=== PATIENT | male | born 1950 | race Caucasian/White ===

== ENCOUNTER → 2022-02-05 | Outpatient (CLI) | payer MEDICARE, OTHER ==
[~2022-02-05] MED LIST: CEPH500C PO; MTF500T PO
--- NOTE | 2022-02-05 20:07 | Diagnostic Imaging Report ---
PROCEDURE: MR imaging of the brain without contrast. TECHNIQUE: Multiplanar, multisequence MR imaging of the brain was performed without contrast. INDICATION: Acute onset left weakness approximately 1 week ago. FINDINGS: Ventricles and sulci are within normal limits for size. There are scattered areas of mild T2 prolongation in the periventricular white matter of the cerebral hemispheres. In addition, there is an elongated region of increased T2 signal along the lateral margin of right thalamus extending into the basal ganglia which also demonstrates restricted diffusion. There is no abnormal mass effect or shift of midline structures. There is no MRI evidence of acute hemorrhage. The visualized paranasal sinuses demonstrate mild mural thickening particularly in the left maxillary sinus. 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 Dictated by: Dictated on workstation # [id number]
== END ==
LOC: RAD 16:44
PROVIDERS: ATTEND Nurse Practitioner Family
DX: G81.94 Hemiplegia, unspecified affecting left nondominant side (principal)
CPT/HCPCS: 70551

== ENCOUNTER 2022-02-11 13:59 | Outpatient (CLI) | payer MEDICARE, OTHER | END 2022-02-23 | LOC: CANPRECLI → RAD 02-23 08:53 | PROVIDERS: ATTEND Family Medicine | DX: Z53.9 Procedure and treatment not carried out, unspecified reason (principal) ==

== ENCOUNTER → 2022-02-23 | Outpatient (CLI) | payer MEDICARE, OTHER | LOC: CARD 09:30 | PROVIDERS: ATTEND Internal Medicine Cardiovascular Disease | DX: I11.9 Hypertensive heart disease without heart failure (principal); I25.10 Atherosclerotic heart disease of native coronary artery without angina pectoris | CPT/HCPCS: 93306 ==

== ENCOUNTER → 2022-07-20 | Outpatient (CLI) | payer MEDICARE, OTHER ==
[~2022-07-20] VITALS: Ht 193 cm; Wt 100.0 kg
[~2022-07-20] MED LIST changes: +CATHETER FLUSH 10 ML SYR IVP PRN
[2022-07-20 09:33] VITALS: BP 142/84
--- NOTE | 2022-07-20 11:37 | Cardiology Stress Test Report ---
Stress Test Report Date of Procedure/Referring: Date of Procedure: Jul 20, 2022 PCP Agusto Bryson MD Admitting Physician Admitting Physician: Attending Physician: Brittany Mae MD Baseline Heart Rate: 62 Baseline Blood Pressure: Blood Pressure Systolic: 142 Blood Pressure Diastolic: 84 Vital Signs Date Time Temp Pulse Resp B/P (MAP) Pulse Ox O2 Delivery O2 Flow Rate FiO2 07/20/22 09:33 74 142/84 (103) Baseline Vital Signs Vital Signs Date Time Temp Pulse Resp B/P (MAP) Pulse Ox O2 Delivery O2 Flow Rate FiO2 07/20/22 09:33 74 142/84 (103) Baseline EKG: Baseline EKG: NSR Summary: After explaining the procedure and details to the patient, he signed the consent and was brought to the stress nuclear laboratory. Patient exercised on standard Ashish protocol, EKG, heart rate and blood pressure were monitored continuously, resting and stress doses of radio tracer were injected, imaging was acquired and reviewed in the short axis, horizontal long a xis and vertical long axis views Patient was able to exercise for a total of 3 minutes on Ashish protocol, METs 4.6 Maximum heart rate 130 Maximum blood pressure 235/99 Stress EKG, Minimal nondiagnostic changes Recovery EKG, Return to baseline TID: 1.22 SSS: 1 SDS: 1 EF: 56 Conclusion: Poor exercise tolerance for 3 minutes on standard Ashish protocol 4.6 METS achieving 92% of maximum expected heart rate Appropriate heart rate response to exercise with hypertensive response to exercise with peak blood pressure 235/99 return to baseline during recovery Abnormal EKG with exercise with [address] depression in lead II, III, aVF, V4 and V6 return to baseline during recovery Transient ischemic dilatation 1.22 Normal left ventricular size with ejection fraction 56% SPECT images did not show any regional ischemia Copy Copies To 1: AGUSTO BRYSON MD, BASHAR J MD Jul 20, 2022 11:37
== END ==
LOC: CARD 08:30
PROVIDERS: ATTEND Internal Medicine Cardiovascular Disease
DX: I10 Essential (primary) hypertension (principal); I25.10 Atherosclerotic heart disease of native coronary artery without angina pectoris
CPT/HCPCS: 78452; 93017; A9502

== ENCOUNTER 2022-07-29 11:00 | Day surgery (SDC) | payer MEDICARE, OTHER ==
[~2022-07-29] VITALS: Ht 193 cm; Wt 100.6 kg
[2022-07-29] VITALS (24 sets, daily range): BP systolic 111–164; BP diastolic 71–99
[~2022-07-29 11:00] MED LIST changes: +ASPIRIN 325 MG (5 GR) TABLET ONE; -CATHETER FLUSH 10 ML SYR IVP PRN; +CLOPIDOGREL 300 MG (PLAVIX) TABLET PO ONE; +HEParin (CATH LAB) 2,000 ML IV ONE; +HEParin 1000 UNIT/ML (10ML VIAL) FOR BOLUS ONE; +LIDOCAINE 1% INJ 20 ML VIAL ONE; +MIDAZOLAM 5 MG/5 ML (VERSED) VIAL ONE; +NITRO DRIP 25000 MCG/D5W 250 ML IV ONE; +NS IV 1000 ML 1,000 ML ONE; +VERAPAMIL 5 MG/2 ML (CALAN) VIAL IV ONE; +fentaNYL INJ 100 MCG/2 ML AMP ONE
[2022-07-29] MEDS ORDERED: NS IV 1000 ML 1,000 ML IV SCH (11:15)
--- NOTE | 2022-07-29 11:17 | Cardiac Cath Report ---
Cardiac Cath Report Physician (s)/C[employer]ol Mainframe Developer (s) Physician MARK WATTERS MD Pre-Procedure Diagnosis Pre-Procedure Diagnosis: Coronary artery disease Post-Procedure Note Procedure Start Date: July 29, 2022 Name of Procedure: Left heart catheterization IFR to LAD IFR to the left circumflex/OM 2 IFR to the left circumflex/OM1 Stenting to the LAD Findings/Procedure Note PROCEDURE NOTE: 71 years old gentleman with history of coronary artery disease, TIA, h ypertension, hyperlipidemia. Had an abnormal stress test, scheduled for cardiac catheterization possible PTCA. After explaining the procedure to the patient, all pros and cons were explained, all questions were answered. The patient signed the consent and then he was placed in the cardiac catheterization laboratory. Groin was prepped in SL fashion local anesthesia was used. Sheath placed in the right radial artery. [place] catheter was advanced to the left ventricular cavity, pressure was measured, pullback LV to aorta was done, engage the right and left coronary system. Angiogram was done. Patient was noted to have multiple lesions in the left coronary system. Received a total of 6000 units of heparin LAD lesion: Esther left 4.0 guide was advanced, IFR wire was advanced and parked in the distal LAD. Baseline IFR was 0.84. Primary stenting to the mid LAD using 2.5 x 23 mm Skypoint stent then proximal to that overlapping 2.5 x 8 mm both stents were expanded to 2.8 mm. Excellent results. LAD lesion preintervention was 70%, post intervention 0%, JD flow preintervention 3, post intervention 3. IFR postintervention 0.91. Left circumflex lesion: IFR wire was advanced patient has 80 to 90% stenosis at the ostium of a small second obtuse marginal branch, IFR measurement was 1.02. 50% stenosis in the mid circumflex artery and IFR across that lesion was 1.03. Nonobstructive disease. At the end of the procedure the sheath was removed. Vascular band was used FINDINGS: Hemodynamics LV 129/18, end-diastolic pressure of 18 Aorta 125/78 mean of 90 ANATOMY: Left Main is free of obstructive disease Left Anterior Descending has 70% to segment stenosis in the mid LAD IFR preintervention was 0.84. Deployment of 2 overlapping Skypoint stents 2.5 x 8 followed by 2.5 x 23 postdilated proximally to 2.8 mm and distally 2.77 mm, IFR post intervention 0.91. 0% residual stenosis. Left Circumflex has proximal/mid 50% stenosis IFR over the lesion was 1.03. Second obtuse marginal branch has 80 to 90% stenosis at the ostium, very small artery, IFR across the lesion was 1.02. The artery is less than 1.5 mm in diameter Right Coronary Artery is dominant artery with no obstructive disease LV Gram was not done, pressure was measured PERCUTANEOUS INTERVENTION: Pre stenosis 70% Post Stenosis 0% Pre JD flow 3 Post JD flow 3 Dominance right coronary artery CONCLUSION: 2 segment stenosis in the mid LAD with successful deployment of overlapping Skypoint stents 2.5 x 8 mm followed by 2.5 x 23 mm expanded to 2.8 mm proximally and 2.77 distally. 50% stenosis in the proximal/mid circumflex artery, IFR was 1.03 80% stenosis at the ostium of the second obtuse marginal branch less than 1.5 mm in diameter, IFR was 1.02 Dominant right coronary artery with no significant obstructive disease Normal left ventricular end-diastolic pressure DISCUSSION AND RECOMMENDATION: Patient has been on aspirin and Plavix, continue to maximize medical therapy. Anesthesia Type: Conscious Sedation Estimated blood loss (mL): 30 ml Contrast Amount: 111 ml Total Radiation Dose: 1079 mGy Post-Procedure Diagnosis Post-operative diagnosis: Chest pain Coronary artery disease Hypertension Hyperlipidemia MARK WATTERS MD July 29, 2022 11:17
[2022-07-29 11:46] LABS: ALANINE AMINOTRANSFERASE 23 U/L (0-55); ALBUMIN 4.8 GM/DL (3.2-4.5); ALKALINE PHOSPHATASE 67 U/L (40-136); BILIRUBIN,TOTAL 1.1 MG/DL (0.1-1.0); BUN/CREATININE RATIO 22; CALCIUM 9.3 MG/DL (8.5-10.1); CARBON DIOXIDE 21 MMOL/L (21-32); CHLORIDE 106 MMOL/L (98-107); CHOLESTEROL 149 MG/DL (< 200); CREATININE SERUM 0.88 MG/DL (0.60-1.30); GFR ESTIMATED 93; GLUCOSE 175 MG/DL (70-105); HDL CHOLESTEROL 37 MG/DL (40-60); POTASSIUM 4.1 MMOL/L (3.6-5.0); SODIUM 137 MMOL/L (135-145); TRIGLYCERIDES 101 MG/DL (<150); VLDL CHOLESTEROL 20 MG/DL (5-40)
[2022-07-29 11:57] LABS: BASOPHILS # (AUTO) 0.1 10^3/uL (0.0-0.1); BASOPHILS % (AUTO) 1 % (0-10); EOSINOPHILS # (AUTO) 0.3 10^3/uL (0.0-0.3); EOSINOPHILS % (AUTO) 3 % (0-10); HEMATOCRIT 51 % (40-54); HEMOGLOBIN 18.3 g/dL (13.3-17.7); LYMPHOCYTES % (AUTO) 23 % (12-44); MEAN CORPUSCULAR HEMOGLOBIN 33 pg (25-34); MEAN CORPUSCULAR HGB CONC 36 g/dL (32-36); MEAN CORPUSCULAR VOLUME 92 fL (80-99); MEAN PLATELET VOLUME 9.8 fL (9.0-12.2); MONOCYTES # (AUTO) 0.7 10^3/uL (0.0-1.0); MONOCYTES % (AUTO) 9 % (0-12); NEUTROPHILS # (AUTO) 5.5 10^3/uL (1.8-7.8); NEUTROPHILS % (AUTO) 64 % (42-75); PLATELET COUNT 231 10^3/uL (130-400); WHITE BLOOD COUNT 8.6 10^3/uL (4.3-11.0)
[2022-07-29 11:58] LABS: INR 0.9 (0.8-1.4)
[2022-07-29 12:03] LABS: AMORPHOUS SEDIMENT,UR RARE AMOR URATES /LPF; BACTERIA,URINE TRACE /HPF; BILIRUBIN,URINE NEGATIVE (NEGATIVE); CLARITY,URINE CLEAR; COLOR,URINE YELLOW; GLUCOSE, URINE (UA) NEGATIVE (NEGATIVE); KETONES,URINE TRACE (NEGATIVE); LEUKOCYTE ESTERASE ,URINE TRACE (NEGATIVE); NITRITE,URINE NEGATIVE (NEGATIVE); PH,URINE 5.5 (5-9); PROTEIN,URINE NEGATIVE (NEGATIVE)
--- NOTE | 2022-07-29 16:31 | Diagnostic Imaging Report ---
Indication: Chest pain Portable chest 8:51 AM Heart size and pulmonary vascularity are normal. Lungs are clear. There are no effusions or pneumothoraces. IMPRESSION: No acute abnormalities in the chest Dictated by: Dictated on workstation # [id number]
[2022-07-29] MEDS ORDERED: CLOP75TA28 PO (17:11)
[2022-07-29] MEDS ORDERED: LOSA50TA63 PO (17:11)
[2022-07-29] MEDS ORDERED: ASPI-999 PO (17:11)
[2022-07-29] MEDS ORDERED: NF-GLIP2.5 PO (17:11)
[2022-07-29] MEDS ORDERED: FINA5TAB6 PO (17:11)
[2022-07-29] MEDS ORDERED: ATOR10TA66 PO (17:11)
--- NOTE | 2022-07-29 17:23 | Discharge Inst-Post CATH ---
Discharge Inst-CATH/EP Problems Reviewed?: Yes Post Cardiac Cath/EP D/C Inst Follow Up/Plan Hold Metformin for [address] Mae in 1-2 weeks <b>CARDIAC CATH/EP PROCEDURE DISCHARGE INSTRUCTIONS</b> ACTIVITY * Go Home directly and rest. * Limit activity of the leg (or wrist if it was used) for 7 days including aerobics, swimming, jogging, bicycling, etc. * Restrict stair-climbing for 7 days if possible, if not, climb up with your non-cath leg, then bring together on the same step. * Avoid lifting, pushing, pulling or excessive movement of the affected extremity for 7 days. * Customary sexual activity may be resumed after 2 days-use caution not to use a position that strains or causes pain to the affected extremity. * No driving for 24 hours. * NO SMOKING. * Avoid straining for bowel movements for 7 days. * Gentle walking on level ground is allowed. * Returning to work will depend on the type of procedure and the results. Your doctor will discuss this with you. CALL YOUR DOCTOR FOR ANY OF THE FOLLOWING: *If bleeding from the puncture site occurs- Apply gentle pressure to site with clean cloth and call your doctor or EMS. * If a knot or lump forms under the skin, increases in size, or causes pain. * If bruising appears to be worsening or moving further down your leg instead of disappearing. * Temperature above 101 F. CARE OF YOUR GROIN INCISION; * Bruising or purple discoloration of the skin near the puncture site is common. * You may shower only, no bathtub bathing for 5 days. Be careful to avoid slipping as your leg may feel stiff. * If a closure device was used on your femoral artery, please see the attached guide regarding care of the device and your leg. * Leave dressing on FOR 24 hours. CARE OF YOUR WRIST INCISION; * Bruising or purple discoloration of the skin near the puncture site is common. * You may shower. * DO NOT submerge wrist. * Leave dressing on FOR 24 hours. MARK MAE MD July 29, 2022 17:23
[2022-07-30] MEDS ORDERED: ASPIRIN E.C. 81 MG (ECOTRIN) TAB PO SCH (09:00)
[2022-07-30] MEDS ORDERED: CLOPIDOGREL 75 MG (PLAVIX) TABLET PO SCH (09:00)
== END 2022-07-29 18:45 ==
LOC: CSDo 11:00 → UNDOFXSDCACCOM 11:00 → UNDOEDSDCBED 11:00 → CATH 11:00 → CSD 11:00 → UNDOFXSDCSVC 11:00 → UNDOFXSDCRRACCOM 11:00 → EDSDCBED 11:00 → UNDOENSDCBED 11:00 → CATH 13:20
PROVIDERS: ATTEND Internal Medicine Cardiovascular Disease
DX: I25.10 Atherosclerotic heart disease of native coronary artery without angina pectoris (principal); I10 Essential (primary) hypertension; E11.9 Type 2 diabetes mellitus without complications; I65.23 Occlusion and stenosis of bilateral carotid arteries; E78.2 Mixed hyperlipidemia; Z79.84 Long term (current) use of oral hypoglycemic drugs; Z79.899 Other long term (current) drug therapy; Z79.82 Long term (current) use of aspirin; Z79.02 Long term (current) use of antithrombotics/antiplatelets; Z87.891 Personal history of nicotine dependence
CPT/HCPCS: 71045; 80053; 80061; 81000; 85025; 85347; 85610; 85730; 87081; 93005; 93458; 93571; 93572; C1769; C1874 ×2; C1887; C1894; C9600; 36415